=== PATIENT | male | born 1985 | race Caucasian/White ===

== ENCOUNTER 2016-12-24 16:49 | Emergency (ER) | payer OTHER ==
[~2016-12-24] VITALS: Wt 79.5 kg
[2016-12-24 17:38] LABS: URINE BLOOD (Dip) POC Negative (NEGATIVE)
[2016-12-24] MEDS ORDERED: DOCU-144 PO (17:57)
[2016-12-24] MEDS ORDERED: HYDR25SU23 PR (17:59)
[2016-12-24] MEDS ORDERED: MAGN296S40 PO (17:59)
[2016-12-24 18:13] VITALS: BP 179/98; PULSE 107; RESP 16; TEMP 98.5
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
== END 2016-12-24 18:14 | disposition home or self-care (01) ==
LOC: FTE 16:49
DX: R30.0 Dysuria (principal); K59.00 Constipation, unspecified; F17.210 Nicotine dependence, cigarettes, uncomplicated
CPT/HCPCS: 81003; Z7502; 99283

== ENCOUNTER 2017-02-09 01:38 | Emergency (ER) | payer OTHER ==
[~2017-02-09] VITALS: Ht 175.3 cm; Wt 170.0 kg
[~2017-02-09 01:38] MED LIST: DOCU-144 PO; HYDR25SU23 PR; MAGN296S40 PO
[2017-02-09 02:15] VITALS: Ht 175.3 cm; Wt 170.0 kg
[2017-02-09] MEDS ORDERED: OLANZAPINE 10 MG VIAL IM ONE (02:30)
[2017-02-09] MEDS ORDERED: LORAZEPAM 2 MG INJ IM ONE (02:30)
[2017-02-09 02:31] LABS: BASOPHIL # 0.1 10^3/ul (0.0-0.1); BASOPHILS % 0.3 % (0.0-2.0); EOSINOPHILS # 0.1 10^3/ul (0.0-0.5); EOSINOPHILS % 0.4 % (0.0-7.0); HEMATOCRIT 44.1 % (42.0-52.0); HEMOGLOBIN 15.6 g/dl (14.0-18.0); LYMPHOCYTES # 1.6 10^3/ul (0.8-2.9); LYMPHOCYTES % 8.8 % (15.0-51.0); MEAN CORPUSCULAR HEMOGLOBIN 30.6 pg (29.0-33.0); MEAN CORPUSCULAR HGB CONC 35.4 g/dl (32.0-37.0); MEAN CORPUSCULAR VOLUME 86.6 fl (82.0-101.0); MEAN PLATELET VOLUME 10.7 fl (7.4-10.4); MONOCYTE # 0.5 10^3/ul (0.3-0.9); NEUTROPHIL # 15.6 10^3/ul (1.6-7.5); NEUTROPHILS % 87.1 % (39.0-77.0); PLATELET COUNT 309 10^3/UL (140-415); RED BLOOD COUNT 5.09 10^6/ul (4.70-6.10); RED CELL DISTRIBUTION WIDTH 12.4 % (11.5-14.5); WHITE BLOOD COUNT 17.9 10^3/ul (4.8-10.8)
--- NOTE | 2017-02-09 02:43 | RADRPT ---
PROCEDURE: RIGHT ANKLE - 3 VIEWS CLINICAL INDICATION: 31-year-old male with right ankle pain. TECHNIQUE: AP, oblique and lateral views of the right ankle were performed. The images reviewed on a PACS workstation. COMPARISON: None. FINDINGS: There is a nondisplaced fracture involving the anterior and superior aspects of the calcaneus. There is a lateral fracture fragment. The mortise appears intact. There is diffuse lateral soft tissue sw elling. The bone marrow mineralization is within normal limits. IMPRESSION: 1. Nondisplaced calcaneal fracture. 2. Diffuse lateral soft tissue swelling. .Maximus Gregory MD, MD Date Time Electronically viewed and signed by .Maximus Gregory MD, MD on 02/09/2017 02:42 .Ez/
[2017-02-09] MEDS ORDERED: OLANZAPINE (ODT) 5 MG TAB ODT STA (02:51)
[2017-02-09 02:55] LABS: ALANINE AMINOTRANSFERASE 58 IU/L (13-69); ALBUMIN 4.5 g/dl (3.3-4.9); ALKALINE PHOSPHATASE 92 IU/L (42-121); ANION GAP 13 (8-16); ASPARTATE AMINO TRANSFERASE 54 IU/L (15-46); BILIRUBIN,INDIRECT 0.3 mg/dl (0-1.1); BILIRUBIN,TOTAL 0.3 mg/dl (0.2-1.3); BLOOD UREA NITROGEN 18 mg/dl (7-20); CALCIUM 9.5 mg/dl (8.4-10.2); CARBON DIOXIDE 27 mmol/L (21-31); CHLORIDE 105 mmol/L (97-110); CREATININE 1.24 mg/dl (0.61-1.24); GLUCOSE 114 mg/dl (70-220); POTASSIUM 3.4 mmol/L (3.5-5.1); SODIUM 142 mmol/L (135-144); TOTAL PROTEIN 7.5 g/dl (6.1-8.1)
[2017-02-09 02:56] LABS: ACETAMINOPHEN < 10.0 ug/ml (10.0-30.0); ETHANOL < 10.0 mg/dl; SALICYLATE < 1.0 mg/dl (5.0-30.0)
[2017-02-09] MEDS ORDERED: LORAZEPAM 1 MG TAB PO ONE (03:00)
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
[2017-02-09 14:31] VITALS: BP 135/70; PULSE 98; RESP 19; TEMP 98.6
[2017-02-09] MEDS ORDERED: HYDR-906 PO (15:04)
--- NOTE | 2017-02-09 15:21 | EN ---
Date/Time of Note Date/Time of Note DATE: 02/09/17 TIME: 15:18 ER Progress Note Observation Note: Time: 9 hours Family Hx: No Hypertension Evaluation: Multiple exams showed improving symptoms and no evidence of persistent psychosis. Patient spoke with the web content & social media manager. She believes that his symptoms are improving and he should be evaluated by psychiatry again. Patient signed out to the oncoming ED physician will follow up on psychiatry's recommendations. Is able to be discharged, I will prescribe the patient Grimsley and he will be given instructions to follow-up with orthopedics within 1 week for his calcaneal fracture. SARIAH MONTEZ MD Feb 09, 2017 15:21
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
== END 2017-02-09 16:59 | disposition home or self-care (01) ==
LOC: E/R 01:38
DX: S82.891A Other fracture of right lower leg, initial encounter for closed fracture (principal); F23 Brief psychotic disorder; F19.10 Other psychoactive substance abuse, uncomplicated; W13.2XXA Fall from, out of or through roof, initial encounter; Y92.9 Unspecified place or not applicable
CPT/HCPCS: 72100; 73610; 80053; 80306; 85025; Z7502; Z7610; J2060